=== PATIENT | female | born 1950 | race Hispanic/Latino ===

== ENCOUNTER 2018-12-27 15:31 | Outpatient (CLI) | payer MEDICARE ==
[2018-12-27 15:48] LABS: Basophils # (Auto) 0.1 K/mm3 (0.0-0.1); Basophils % (Auto) 0.9 % (0.0-1.8); Eosinophils # (Auto) 0.2 K/mm3 (0.0-0.4); Eosinophils % (Auto) 2.6 % (0.0-4.3); Hematocrit 32.2 % (30.3-42.9); Hemoglobin 10.3 gm/dl (10.1-14.3); Lymphocytes % (Auto) 26.6 % (13.4-35.0); Mean Corpuscular HGB Conc 32 % (30-34); Mean Corpuscular Volume 91 fl (79-97); Monocytes # (Auto) 0.4 K/mm3 (0.0-0.8); Monocytes % (Auto) 5.7 % (0.0-7.3); Platelet Count 289 K/mm3 (140-440); Red Blood Count 3.55 M/mm3 (3.65-5.03); Red Cell Distribution Width 14.7 % (13.2-15.2)
[2018-12-27 16:16] LABS: Calcium 8.9 mg/dL (8.4-10.2)
== END 2018-12-27 15:32 | disposition home or self-care (01) ==
LOC: LAB 15:31
PROVIDERS: ATTEND Internal Medicine Nephrology
DX: E11.21 Type 2 diabetes mellitus with diabetic nephropathy (principal); R94.4 Abnormal results of kidney function studies; I10 Essential (primary) hypertension; I43 Cardiomyopathy in diseases classified elsewhere; E78.5 Hyperlipidemia, unspecified
CPT/HCPCS: 36415; 80048; 82040; 84100; 85025

== ENCOUNTER 2022-03-22 00:40 | Emergency (ER) | payer MEDICARE ==
--- NOTE | 2022-03-22 01:38 | Emergency Department Report ---
ED Shortness of Breath HPI - General Chief Complaint: Dyspnea/Respdistress Stated Complaint: WEAKNESS/SOB Time Seen by Provider: 03/22/22 01:27 Source: patient, EMS Mode of arrival: Stretcher Limitations: No Limitations - History of Present Illness Initial Comments: Patient is a 71-year-old female brought in by EMS from home for evaluation of generalized weakness and shortness of breath. States she went to dialysis yesterday and had extreme fatigue and weakness when getting home. States she was barely able to make it up her stairs. States he is on home oxygen as needed at 3 L. She denies any fever, chills, chest pain. MD Complaint: shortness of breath - Related Data Allergies Allergy/AdvReac Type Severity Reaction Status Date / Time codeine Allergy Hives Verified 03/22/22 01:36 ED Review of Systems ROS: Stated complaint: WEAKNESS/SOB Other details as noted in HPI Comment: All other systems reviewed and negative Constitutional: weakness. denies: chills, fever Respiratory: shortness of breath. denies: cough, wheezing Cardiovascular: denies: chest pain, palpitations Gastrointestinal: denies: abdominal pain, nausea, diarrhea Musculoskeletal: denies: back pain, joint swelling, arthralgia Skin: denies: rash, lesions Neurological: denies: headache, weakness, paresthesias Psychiatric: denies: anxiety, depression ED Past Medical Hx - Social History Smoking Status: Never Smoker ED Physical Exam - General Limitations: No Limitations General appearance: alert, in no apparent distress - Head Head exam: Present: atraumatic, normocephalic - Respiratory Respiratory exam: Present: normal lung sounds bilaterally. Absent: respiratory distress - Cardiovascular Cardiovascular Exam: Present: regular rate, normal rhythm, normal heart sounds - GI/Abdominal GI/Abdominal exam: Present: soft. Absent: distended, tenderness - Rectal Rectal exam: Present: deferred - Extremities Exam Extremities exam: Absent: pedal edema - Neurological Exam Neurological exam: Present: alert, oriented X3 - Psychiatric Psychiatric exam: Present: normal affect, normal mood - Skin Skin exam: Present: warm, dry, intact ED Course Vital Signs 03/22/22 03/22/22 03/22/22 00:58 01:01 01:15 Temperature Pulse Rate 99 H Respiratory 13 Rate Blood Pressure 140/59 146/66 Blood Pressure [Right] O2 Sat by Pulse 99 98 98 Oximetry 03/22/22 03/22/22 03/22/22 01:25 01:31 01:38 Temperature 99.9 F H Pulse Rate 94 H 100 H Respiratory 15 17 15 Rate Blood Pressure 169/67 Blood Pressure 140/59 [Right] O2 Sat by Pulse 97 99 97 Oximetry 03/22/22 03/22/22 03/22/22 01:45 02:01 02:15 Temperature Pulse Rate 103 H 99 H 101 H Respiratory 30 H 20 25 H Rate Blood Pressure 106/61 171/80 153/75 Blood Pressure [Right] O2 Sat by Pulse 98 98 95 Oximetry 03/22/22 03/22/22 03/22/22 02:45 03:01 03:15 Temperature Pulse Rate 98 H 97 H 95 H Respiratory 22 Rate Blood Pressure 165/61 165/61 165/61 Blood Pressure [Right] O2 Sat by Pulse 95 99 99 Oximetry 03/22/22 03/22/22 03/22/22 03:31 03:45 04:01 Temperature Pulse Rate 98 H 99 H 98 H Respiratory 19 11 L Rate Blood Pressure 165/61 162/69 183/66 Blood Pressure [Right] O2 Sat by Pulse 98 99 93 Oximetry ED Medical Decision Making - Lab Data Result diagrams: 03/22/22 01:43 03/22/22 01:43 - Medical Decision Making No acute findings on chest x-ray. Patient currently satting mid 90s on room air. Labs reviewed. Creatinine 4.9. Potassium within normal range. I suspect patient's weakness and fatigue were likely related to her recent dialysis [facility]. She is currently asymptomatic. Stable for discharge home with return precautions. Critical care attestation.: If time is entered above; I have spent that time in minutes in the direct care of this critically ill patient, excluding procedure time. ED Disposition Clinical Impression: Generalized weakness, Dyspnea Disposition: 01 HOME / SELF CARE / HOMELESS Is pt being admited?: No Does the pt Need Aspirin: No Condition: Stable Instructions: Weakness, [id number] Time of Disposition: 04:19
--- NOTE | 2022-03-22 02:20 | XRay Report ---
CHEST 1 VIEW 03/22/2022 1:04 AM INDICATION / CLINICAL INFORMATION: Dyspnea. COMPARISON: None available. FINDINGS: SUPPORT DEVICES: Right IJ central venous catheter with the tip at the cavoatrial junction. HEART / MEDIASTINUM: No significant abnormality. LUNGS / PLEURA: No significant pulmonary or pleural abnormality. No pneumothorax. ADDITIONAL FINDINGS: No significant additional findings. IMPRESSION: 1. Central line in expected position. No acute cardiopulmonary abnormality. Signer Name: Jean-Pierre Walden DO Signed: 03/22/2022 2:16 AM Workstation Name: [id number]
[2022-03-22 02:33] LABS: Basophils # (Auto) 0.1 K/mm3 (0.0-0.1); Basophils % (Auto) 0.5 % (0.0-1.8); Eosinophils % (Auto) 0.3 % (0.0-4.3); Hematocrit 34.5 % (30.3-42.9); Hemoglobin 11.4 gm/dl (10.1-14.3); Lymphocytes # (Auto) 0.9 K/mm3 (1.2-5.4); Lymphocytes % (Auto) 8.8 % (13.4-35.0); Mean Corpuscular HGB Conc 33 % (30-34); Mean Corpuscular Volume 97 fl (79-97); Monocytes # (Auto) 1.2 K/mm3 (0.0-0.8); Monocytes % (Auto) 11.7 % (0.0-7.3); Platelet Count 237 K/mm3 (140-440); Red Blood Count 3.55 M/mm3 (3.65-5.03); Red Cell Distribution Width 13.7 % (13.2-15.2)
[2022-03-22 02:50] LABS: Albumin 4.6 g/dL (3.9-5)
[2022-03-22 03:25] LABS: ABG Base Excess 5.5 mmol/L (-2.0-3.0); ABG HCO3 29.3 mmol/L (20.0-26.0); ABG Methemoglobin 0.5 % (0.0-1.5); ABG Oxygen Saturation 97.8 % (95.0-99.0); ABG PCO2 39.9 mm Hg; ABG PH 7.484 pH Units (7.350-7.450); ABG PO2 65.1 mm Hg (80.0-90.0)
[2022-03-22 06:04] VITALS: BP 141/60
== END 2022-03-22 08:46 | disposition home or self-care (01) ==
LOC: ED 00:40
DX: R06.00 Dyspnea, unspecified (principal); R53.1 Weakness; Z88.5 Allergy status to narcotic agent
CPT/HCPCS: 36415; 71045; 80053; 82803; 85025; 99284

== ENCOUNTER 2022-03-22 18:17 | Emergency (ER) | payer MEDICARE ==
[2022-03-22 18:19] VITALS: BP 137/60
[2022-03-22] MEDS ORDERED: ACETAMINOPHEN 325 MG/10.15 ML ORAL LIQD UNIT DOSE PO ONE (18:31)
== END 2022-03-22 18:30 | disposition left against medical advice (07) ==
LOC: ED 18:17
DX: Z00.00 Encounter for general adult medical examination without abnormal findings (principal); Z53.21 Procedure and treatment not carried out due to patient leaving prior to being seen by health care provider